=== PATIENT | female | born 1950 | race Two or more races ===

== ENCOUNTER → 2023-07-14 | Emergency (ER) | payer OTHER ==
[~2023-07-14] VITALS: Ht 165.1 cm; Wt 49.9 kg
[~2023-07-14] MED LIST: ALDACTONE25 MG PO; GLUMETZA500 MG; GRALISE600 MG PO; LASIX20 MG PO; LIPITOR20 MG PO; PEPCID AC20 MG PO; PLAVIX75 MG PO; ZESTRIL2.5 MG
[2023-07-15 01:10] LABS: MEAN CELL VOLUME 78.3 fL (80.00-100.00); MEAN CORPUSCULAR HGB CONC 31.8 g/dl (32.0-36.0); RED BLOOD COUNT 2.85 M/uL (4.00-6.00); RED CELL DISTRIBUTION WIDTH 18.4 % (11.5-14.5)
[2023-07-15 01:13] LABS: MEAN CORPUSCULAR HEMOGLOBIN 24.9 pg (27.00-32.0)
[2023-07-15 01:17] LABS: HEMATOCRIT 22.3 % (36.0-45.00); HEMOGLOBIN 7.1 g/dL (12.0-15.00)
[2023-07-15 01:31] LABS: INR 1.09; PARTIAL THROMBOPLASTIN TIME 27.7 SECONDS (22.0-34.0); PROTHROMBIN TIME 11.4 SECONDS (9.0-11.5)
[2023-07-15 02:51] LABS: ALBUMIN 2.3 gm/dL (3.4-5.0); BILIRUBIN TOTAL 0.71 mg/dL (0.3-1.2); CREATININE SERUM 0.71 mg/dL (0.55-1.02); GFR 81.15; GLOBULINA 5.5 G/DL (2.4-3.5); POTASSIUM 4.81 mEq/L (3.5-5.1); TOTAL PROTEIN 7.8 gm/dL (6.4-8.2)
[2023-07-15 02:56] LABS: PLATELET COUNT 13 K/uL (150-450)
== END | disposition left against medical advice (07) ==
LOC: ER 22:53
PROVIDERS: General Practice
DX: D64.9 Anemia, unspecified (principal); D69.6 Thrombocytopenia, unspecified; R04.0 Epistaxis; I10 Essential (primary) hypertension